=== PATIENT | female | born 1985 | race Caucasian/White ===

== ENCOUNTER 2018-12-06 21:17 | Emergency (ER) | payer OTHER ==
[~2018-12-06] VITALS: Ht 165.1 cm; Wt 92.1 kg
[~2018-12-06 21:17] MED LIST: FLUOXETINE20 M2 PO; HYDROCORTISONE10 M1 PO
[2018-12-06 21:33] VITALS: Ht 165.1 cm; Wt 92.1 kg
[2018-12-06 22:50] LABS: BASOPHIL % 0.5 % (0-2); PLATELET COUNT 340 x10^3mcL (130-400)
[2018-12-07 03:24] VITALS: BP 109/72
== END 2018-12-07 03:24 | disposition home or self-care (01) ==
LOC: ED 21:17
PROVIDERS: Emergency Medicine
DX: O20.9 Hemorrhage in early pregnancy, unspecified (principal); I10 Essential (primary) hypertension; Z3A.08 8 weeks gestation of pregnancy; Z88.1 Allergy status to other antibiotic agents
CPT/HCPCS: 36415